=== PATIENT | female | born 1970 | race Caucasian/White ===

== ENCOUNTER 2020-04-05 18:20 | Emergency (ER) | payer MEDICAID ==
[~2020-04-05] VITALS: Ht 165.1 cm; Wt 68.0 kg
[2020-04-05 18:29] VITALS: BP 155/72
[2020-04-05] MEDS ORDERED: AMITRIPTYLINE H50 M2 PO (18:32)
[2020-04-05] MEDS ORDERED: WELLBUTRIN XL300 MG PO (18:32)
[2020-04-05] MEDS ORDERED: NEURONTIN 400M400 M2 ×2 (18:32→18:33)
[2020-04-05] MEDS ORDERED: LAMOTRIGINE150 MG PO (18:33)
[2020-04-05] MEDS ORDERED: PERIDEX 0.12%473 M1 PO (18:33)
[2020-04-05] MEDS ORDERED: NAPROSYN500 MG PO (18:36)
[2020-04-05] MEDS ORDERED: NORCO 5-325 TA1 EAC2 PO (18:36)
== END 2020-04-05 18:57 | disposition home or self-care (01) ==
LOC: M.ERS 18:20
DX: M62.830 Muscle spasm of back (principal); F41.9 Anxiety disorder, unspecified; Z79.899 Other long term (current) drug therapy; Z88.5 Allergy status to narcotic agent

== ENCOUNTER 2021-01-21 04:38 | Emergency (ER) | payer MEDICAID ==
[~2021-01-21] VITALS: Ht 165.1 cm; Wt 63.5 kg
[~2021-01-21 04:38] MED LIST: AMITRIPTYLINE H50 M2 PO; LAMOTRIGINE150 MG PO; NAPROSYN500 MG PO; NEURONTIN 400M400 M2; NORCO 5-325 TA1 EAC2 PO; PERIDEX 0.12%473 M1 PO; WELLBUTRIN XL300 MG PO
[2021-01-21] MEDS ORDERED: BACLOFEN 10MG T10 MG PO (04:48)
[2021-01-21] MEDS ORDERED: LATUDA60 MG PO (04:48)
[2021-01-21] MEDS ORDERED: HYDROCODON-ACE1 EAC7 PO (05:44)
[2021-01-21] MEDS ORDERED: TORADOL 10 MG T10 MG PO (05:44)
== END 2021-01-21 05:53 | disposition home or self-care (01) ==
LOC: M.ERS 04:38
DX: M62.830 Muscle spasm of back (principal); Z88.6 Allergy status to analgesic agent

== ENCOUNTER 2021-06-03 16:12 | Emergency (ER) | payer MEDICAID ==
[~2021-06-03] VITALS: Ht 165.1 cm; Wt 63.5 kg
[~2021-06-03 16:12] MED LIST changes: +BACLOFEN 10MG T10 MG PO; +HYDROCODON-ACE1 EAC7 PO; +LATUDA60 MG PO; +TORADOL 10 MG T10 MG PO
[2021-06-03] MEDS ORDERED: MOBIC7.5 MG PO (19:30)
[2021-06-03 19:44] VITALS: BP 120/70
== END 2021-06-03 19:46 | disposition home or self-care (01) ==
LOC: M.ERS 16:12
DX: M54.5 Low back pain (principal); G89.29 Other chronic pain; M62.830 Muscle spasm of back; F32.9 Major depressive disorder, single episode, unspecified; F41.9 Anxiety disorder, unspecified; Z79.899 Other long term (current) drug therapy; Z88.6 Allergy status to analgesic agent